=== PATIENT | female | born 1940 | race Caucasian/White ===

== ENCOUNTER 2016-08-06 12:40 | Emergency (ER) | payer OTHER ==
[2016-08-06 13:14] VITALS: RESP 18; TEMP 98
--- NOTE | 2016-08-06 15:13 | UCPHY ---
H & P Patient Type: New Chief Complaint Nursing Narrative: tripped and fell onto chin lt rib on Saturday - concerned she may a broke rib Time Seen by Provider: 08/06/16 15:07 HPI/ROS: CHIEF COMPLAINT: Rib pain HISTORY OF PRESENT ILLNESS: The patient is a 76-year-old female, otherwise healthy, who presents with bilateral rib pain that began after a fall 3 days ago. The patient was attempting to move the recycle bin back up the driveway and fell. She fell to the opposite side as the recycle bin tipped to the left, landed on her hands, knees, but does not recall actually landing on her chin. Though she is certain that she did not strike her abdomen or chest, She has pain to both sides of her ribs, as she points to the area between the AAL and PAL on both sides., but states she did not fall on either side of her ribs. She has been taking Aleve for pain, only one dose a day. She reports associated pain with deep inhalation, however does not have SOB per se. She denies palpitations, chest pain, or bloody stool prior to the fall. She denies neck pain or spinal pain or any thoraco abdominal pain. REVIEW OF SYSTEMS: Constitutional: No fever, no chills. Eyes: No discharge. ENT: No sore throat. Cardiovascular: No chest pain, no palpitations. Respiratory: No cough, shortness of breath, or wheezing. Gastrointestinal: No nausea vomiting or diarrhea. No abdominal pain. Genitourinary: No hematuria or frequency. Musculoskeletal: Bilateral rib pain. See above. Skin: No rashes. Neurological: No headache. 10 point ROS otherwise negative Source: Patient Exam Limitations: No limitations - Personal History Current Tetanus Diphtheria and Acellular Pertussis (TDAP): Yes - Medical/Surgical History Hx Asthma: No Hx Chronic Respiratory Disease: No Hx Diabetes: No Hx Cardiac Disease: No Hx Renal Disease: No Hx Cirrhosis: No Hx Alcoholism: No Other PMH: HTN. no known DM or CRF. - Family History Significant Family History: No pertinent family hx - Social History Smoking Status: Never smoked Alcohol Use: None Drug Use: None Additional Social History: Nonsmoker. No recent alcohol. She has completed a moved to a new home having sold her floor at home as well as a local 1 here. Life is looking up - Physical Exam Exam: General Appearance: Alert, no distress. Afebrile. Normal phonation. No respiratory distress. Moves a little stiffly. Eyes: Pupils equal and round no pallor or injection. No icterus ENT, Mouth: Mucous membranes moist. Pharynx without erythema or exudate. TM Clear. Face: Ecchymosis to chin. Neck: No adenopathy. Supple. No JVD. Trachea in midline. Respiratory: There are no retractions, lungs are clear to auscultation. Mild bilateral rib tenderness, no crepitus. Cardiovascular: Regular rate and rhythm, no murmur. Abdomen: Soft and nontender, no masses, bowel sounds normal. Neurological: Ox3. No motor weakness. Sensation intact. Gait normal, though cllimbs to stretcher slowliy due to rib pain. Skin: Warm and dry, no rashes. Musculoskeletal: No joint swelling. Extremities: No edema. Abrasions to both knees. Psychiatric: Normal affect. Patient is oriented X 3. Constitutional: Initial Vital Signs Temperature (C) 36.6 C 08/06/16 13:11 Heart Rate 71 08/06/16 13:11 Respiratory Rate 18 08/06/16 13:11 Blood Pressure 145/83 H 08/06/16 13:11 O2 Sat (%) 97 08/06/16 13:11 O2 Delivery Mode Room Air Allergies/Adverse Reactions: Sulfa (Sulfonamide Antibiotics) Allergy (Verified 08/06/16 13:10) Home Medications: Medication Instructions Recorded Bystolic 08/06/16 Medical Decision Making - Diagnostics Imaging: Imaging Impressions Chest X-Ray 08/06/16 13:14 Impression: 1. Right posterior basilar subsegmental atelectasis versus minimal infiltrate. 2. There is no rib fracture appreciated, or evidence of a pneumothorax. 3. Mild hypoventilatory features. Films reviewed by me on the [facility] as well ED Course/Re-evaluation: The patient is a healthy 76-year-old female presenting with bilateral rib pain after a fall 3 days ago. The patient appears to be uncomfortable when walking secondary to pain. She has a benign exam. The chest x-ray shows some atelectasis of the right base where as if anything she has more pain in the left posterior thorax over the posterior axillary line. I do not see any pneumothorax and there is no crepitus or subcutaneous emphysema to suggest the need for further diagnostic study. The chest x-ray does not show any signs of pulmonary contusion. I viewed the x-ray of the chest myself on the PACS system. No rib fracture or pneumothorax. See imaging section for full radiology report. Plan to discharge the patient home with Tylenol and Aleve instructions. As well as Prilosec OTC with the Aleve Differential Diagnosis: Diagnostic considerations include, but are not limited to, the following: Rib contusion, pneumothorax, rib fracture, intra-abdominal injury such as ruptured spleen or liver laceration, chest wall contusion, wrist contusion Departure - Departure Disposition: Home, Routine, Self-Care Clinical Impression: Atelectasis of right lung Rib contusion Qualifiers: Encounter type: initial encounter Condition: Good Instructions: Rib Contusion (ED) Additional Instructions: 1. Take Tylenol Extended release Arthritis Formula 1300 mg every 12 hours as needed for pain. 2. Take Aleve as directed, one pill twice a day. I recommend taking 20mg Prilosec alongside the Aleve. 3. Avoid sick contacts. 4. Rest, and minimize movements for the duration of your pain. 5. Return or see your primary care physician if you develop increased shortness of breath, chest pain, or worsening symptoms. Referrals: JACLYN CHAPMAN [Other] - As per Instructions - PQRS PQRS Measurement: 134: Depression screening and followup, PRIME MD-PHQ2 (12 years and older) Over the last 2 weeks, how often have you been bothered by any of the following problems? 1. Feeling down, depressed, or hopeless? 2. Little interest or pleasure in doing things? [Patient answered no to both 1 and 2] [Patient answered yes to at least 1, referred to PCP for further evaluation.] [Not done because] [altered mental status] [patient refused] [critically ill.] 130: Documentation of medications. [Reviewed all patient medications, doses, route and frequency.] [Unable to obtain meds due to] [critical illness] [altered mental status] [ patient did not know]. 226: Do you smoke? [No.] [Yes, counseled to stop.] 47: 65 and older: Advanced care planning. Patient designates surrogate decision maker as [parent] [spouse] [ ]. [Patient refused.] [Patient has advanced directive.] 51: 18 years old and older with diagnosis of COPD, spirometry performance. [Patient has no history of COPD] [Spirometry not performed; equipment not available.] 52: 18 years old and older with COPD and symptoms of COPD or FEV1<60% predicted prescribed a B Agonist. [Patient has no history of COPD] [Spirometry not performed; equipment not available.] Report Scribed for: Gilbert Key Report Scribed by: Luann Umaña Date of Report: 08/06/16 Time of Report: 15:13
--- NOTE | 2016-08-06 15:29 | UCPHY ---
H & P Patient Type: New Chief Complaint Nursing Narrative: tripped and fell onto chin lt rib on Saturday - concerned she may a broke rib Time Seen by Provider: 08/06/16 15:07 Source: Patient - Personal History Current Tetanus Diphtheria and Acellular Pertussis (TDAP): Yes - Medical/Surgical History Other PMH: denies Constitutional: Initial Vital Signs Temperature (C) 36.6 C 08/06/16 13:11 Heart Rate 71 08/06/16 13:11 Respiratory Rate 18 08/06/16 13:11 Blood Pressure 145/83 H 08/06/16 13:11 O2 Sat (%) 97 08/06/16 13:11 O2 Delivery Mode Room Air Allergies/Adverse Reactions: Sulfa (Sulfonamide Antibiotics) Allergy (Verified 08/06/16 13:10) Home Medications: Medication Instructions Recorded Bystolic 08/06/16 Medical Decision Making - Diagnostics Imaging: Imaging Impressions Chest X-Ray 08/06/16 13:14 Impression: 1. Right posterior basilar subsegmental atelectasis versus minimal infiltrate. 2. There is no rib fracture appreciated, or evidence of a pneumothorax. 3. Mild hypoventilatory features. Departure - Departure Referrals: JACLYN CHAPMAN [Other] - As per Instructions
[2016-08-06 15:58] VITALS: BP 147/80; PULSE 64; O2SAT 93
== END 2016-08-06 15:45 | disposition home or self-care (01) ==
LOC: CED 12:40
DX: J98.11 Atelectasis (principal); R07.81 Pleurodynia; W01.0XXA Fall on same level from slipping, tripping and stumbling without subsequent striking against object, initial encounter; Y92.014 Private driveway to single-family (private) house as the place of occurrence of the external cause; Y93.E9 Activity, other interior property and clothing maintenance; Y99.8 Other external cause status
CPT/HCPCS: 71020; G0463; 99204-PO

== ENCOUNTER → 2018-10-17 | Outpatient (CLI) | payer OTHER | LOC: BRMIMAGING 10:15 ==